=== PATIENT | male | born 1990 | race Caucasian/White ===

== ENCOUNTER 2021-07-08 10:00 | Outpatient (CLI) | payer OTHER ==
[~2021-07-08] VITALS: Ht 177.8 cm; Wt 108.0 kg
[~2021-07-08 10:00] MED LIST: ACETAMINOPHEN TAB 650MG DOSE (2X325MG) PO ONE; diphenhydrAMINE 25MG CAP PO ONE
[2021-07-08 10:10] VITALS: BP 164/93
[2021-07-08 10:14] VITALS: BP 168/93
[2021-07-08] MEDS ORDERED: MESA800T8 PO (10:34)
[2021-07-08] MEDS ORDERED: LISI10TA22 PO (10:34)
[2021-07-08] MEDS ORDERED: PROTPAK PO (10:34)
[2021-07-08] MEDS ORDERED: CLAR10CA3 PO (10:34)
[2021-07-08] MEDS: VEDOLIZUMAB 300 MG in NS 250 ML IV ONE ×2 (11:05→11:24)
[2021-07-08 11:38] VITALS: BP 157/91
== END 2021-07-08 11:40 | disposition home or self-care (01) ==
LOC: M INFU 10:00
PROVIDERS: ATTEND Internal Medicine Gastroenterology
DX: K50.90 Crohn's disease, unspecified, without complications (principal)
CPT/HCPCS: 96365; J3380

== ENCOUNTER 2021-07-22 11:25 | Outpatient (CLI) | payer OTHER ==
[~2021-07-22] VITALS: Ht 177.8 cm; Wt 108.0 kg
[~2021-07-22 11:25] MED LIST changes: -ACETAMINOPHEN TAB 650MG DOSE (2X325MG) PO ONE; +CLAR10CA3 PO; +LISI10TA22 PO; +MESA800T8 PO; +PROTPAK PO; -diphenhydrAMINE 25MG CAP PO ONE
[2021-07-22] MEDS ORDERED: VEDOLIZUMAB 300 MG in NS 250 ML IV ONE (11:30)
[2021-07-22] MEDS ORDERED: diphenhydrAMINE 25MG CAP PO ONE (11:30)
[2021-07-22] MEDS ORDERED: ACETAMINOPHEN TAB 650MG DOSE (2X325MG) PO ONE (11:30)
[2021-07-22 11:45] VITALS: BP 146/77
[2021-07-22 12:50] VITALS: BP 139/99
== END 2021-07-22 12:25 | disposition home or self-care (01) ==
LOC: M INFU 11:25 → EDUNIT# 11:30 → M INFU 12:25
PROVIDERS: ATTEND Internal Medicine Gastroenterology
DX: K50.90 Crohn's disease, unspecified, without complications (principal)
CPT/HCPCS: 96413; J3380

== ENCOUNTER 2021-08-19 11:27 | Outpatient (CLI) | payer OTHER ==
[2021-08-19] MEDS ORDERED: diphenhydrAMINE 25MG CAP PO ONE (11:30)
[2021-08-19] MEDS ORDERED: VEDOLIZUMAB 300 MG in NS 250 ML IV ONE (11:30)
[2021-08-19] MEDS ORDERED: ACETAMINOPHEN TAB 650MG DOSE (2X325MG) PO ONE (11:30)
[2021-08-19 12:26] VITALS: BP 173/92
[2021-08-19 13:25] VITALS: BP 163/88
== END 2021-08-19 13:25 | disposition home or self-care (01) ==
LOC: M INFU 11:27 → EDUNIT# 11:30 → M INFU 13:25
PROVIDERS: ATTEND Internal Medicine Gastroenterology
DX: K50.90 Crohn's disease, unspecified, without complications (principal)
CPT/HCPCS: 96365; J3380

== ENCOUNTER 2021-10-14 11:33 | Outpatient (CLI) | payer OTHER ==
[~2021-10-14] VITALS: Ht 175.3 cm; Wt 108.0 kg
[~2021-10-14 11:33] MED LIST changes: +ACETAMINOPHEN TAB 650MG DOSE (2X325MG) PO ONE; +VEDOLIZUMAB 300 MG in NS 250 ML IV ONE; +diphenhydrAMINE 25MG CAP PO ONE
[2021-10-14 11:48] VITALS: BP 170/88
[2021-10-14 12:57] VITALS: BP 166/88
== END 2021-10-14 13:00 | disposition home or self-care (01) ==
LOC: M INFU 11:33
PROVIDERS: ATTEND Internal Medicine Gastroenterology
DX: K50.90 Crohn's disease, unspecified, without complications (principal)
CPT/HCPCS: 96365; J3380

== ENCOUNTER 2021-12-09 11:23 | Outpatient (CLI) | payer OTHER ==
[~2021-12-09] VITALS: Ht 182.9 cm; Wt 111.3 kg
[~2021-12-09 11:23] MED LIST changes: -ACETAMINOPHEN TAB 650MG DOSE (2X325MG) PO ONE; -VEDOLIZUMAB 300 MG in NS 250 ML IV ONE; -diphenhydrAMINE 25MG CAP PO ONE
[2021-12-09 11:30] VITALS: BP 144/69
[2021-12-09] MEDS ORDERED: diphenhydrAMINE 25MG CAP PO ONE (11:30)
[2021-12-09] MEDS ORDERED: VEDOLIZUMAB 300 MG in NS 250 ML IV ONE (11:30)
[2021-12-09] MEDS ORDERED: ACETAMINOPHEN TAB 650MG DOSE (2X325MG) PO ONE (11:30)
[2021-12-09 13:25] VITALS: BP 142/89
== END 2021-12-09 13:25 | disposition home or self-care (01) ==
LOC: M INFU 11:23 → EDUNIT# 11:30 → M INFU 13:25
PROVIDERS: ATTEND Internal Medicine Gastroenterology
DX: K50.90 Crohn's disease, unspecified, without complications (principal)
CPT/HCPCS: 96365; J3380

== ENCOUNTER 2022-02-03 11:43 | Outpatient (CLI) | payer OTHER ==
[~2022-02-03] VITALS: Ht 182.9 cm; Wt 108.0 kg
[~2022-02-03 11:43] MED LIST changes: +ACETAMINOPHEN TAB 650MG DOSE (2X325MG) PO ONE; +VEDOLIZUMAB 300 MG in NS 250 ML IV ONE; +diphenhydrAMINE 25MG CAP PO ONE
[2022-02-03 11:45] VITALS: BP 158/68
[2022-02-03 13:05] VITALS: BP 164/89
== END 2022-02-03 13:05 | disposition home or self-care (01) ==
LOC: M INFU 11:43
PROVIDERS: ATTEND Internal Medicine Gastroenterology
DX: K50.90 Crohn's disease, unspecified, without complications (principal)
CPT/HCPCS: 96365; J3380

== ENCOUNTER 2022-03-31 11:30 | Outpatient (CLI) | payer OTHER ==
[2022-03-31 11:30] VITALS: BP 137/87
[2022-03-31 12:50] VITALS: BP 159/75
== END 2022-03-31 12:55 | disposition home or self-care (01) ==
LOC: M INFU 11:30
PROVIDERS: ATTEND Internal Medicine Gastroenterology
DX: K50.90 Crohn's disease, unspecified, without complications (principal)
CPT/HCPCS: 96365; J3380

== ENCOUNTER 2022-05-26 11:27 | Outpatient (CLI) | payer OTHER ==
[2022-05-26 11:25] VITALS: BP 141/95
[~2022-05-26 11:27] MED LIST changes: -ACETAMINOPHEN TAB 650MG DOSE (2X325MG) PO ONE; -VEDOLIZUMAB 300 MG in NS 250 ML IV ONE; -diphenhydrAMINE 25MG CAP PO ONE
[2022-05-26] MEDS ORDERED: diphenhydrAMINE 25MG CAP PO ONE (11:30)
[2022-05-26] MEDS ORDERED: ACETAMINOPHEN TAB 650MG DOSE (2X325MG) PO ONE (11:30)
[2022-05-26] MEDS ORDERED: VEDOLIZUMAB 300 MG in NS 250 ML IV ONE (11:30)
[2022-05-26 12:35] VITALS: BP 168/94
== END 2022-05-26 12:35 | disposition home or self-care (01) ==
LOC: M INFU 11:27
PROVIDERS: ATTEND Internal Medicine Gastroenterology
DX: K50.90 Crohn's disease, unspecified, without complications (principal)
CPT/HCPCS: 96365; J3380

== ENCOUNTER 2022-07-21 11:30 | Outpatient (CLI) | payer OTHER ==
[2022-07-21 11:30] VITALS: BP 144/81
[~2022-07-21 11:30] MED LIST changes: +ACETAMINOPHEN TAB 650MG DOSE (2X325MG) PO ONE; +VEDOLIZUMAB 300 MG in NS 250 ML IV ONE; +diphenhydrAMINE 25MG CAP PO ONE
[2022-07-21 12:39] VITALS: BP 142/79
== END 2022-07-21 12:40 | disposition home or self-care (01) ==
LOC: M INFU 11:30
PROVIDERS: ATTEND Internal Medicine Gastroenterology
DX: K50.90 Crohn's disease, unspecified, without complications (principal)
CPT/HCPCS: 96365; J3380

== ENCOUNTER 2022-09-15 11:35 | Outpatient (CLI) | payer OTHER ==
[~2022-09-15] VITALS: Ht 182.9 cm; Wt 108.0 kg
[2022-09-15 11:30] VITALS: BP 146/78
[2022-09-15 13:38] VITALS: BP 178/109
== END 2022-09-15 13:40 | disposition home or self-care (01) ==
LOC: M INFU 11:35
PROVIDERS: ATTEND Internal Medicine Gastroenterology
DX: K50.90 Crohn's disease, unspecified, without complications (principal)
CPT/HCPCS: 96365; J3380

== ENCOUNTER 2023-01-10 14:00 | Outpatient (CLI) | payer OTHER ==
[2023-01-10 14:16] VITALS: BP 179/97
[2023-01-10 15:14] VITALS: BP 166/93
== END 2023-01-10 15:10 | disposition home or self-care (01) ==
LOC: M INFU 14:00
PROVIDERS: ATTEND Internal Medicine Gastroenterology
DX: K50.90 Crohn's disease, unspecified, without complications (principal)
CPT/HCPCS: 96365; J3380

== ENCOUNTER 2023-03-08 11:25 | Outpatient (CLI) | payer OTHER ==
[~2023-03-08] VITALS: Ht 182.9 cm; Wt 108.0 kg
[~2023-03-08 11:25] MED LIST changes: -ACETAMINOPHEN TAB 650MG DOSE (2X325MG) PO ONE; -VEDOLIZUMAB 300 MG in NS 250 ML IV ONE; -diphenhydrAMINE 25MG CAP PO ONE
[2023-03-08 11:30] VITALS: BP 148/92
[2023-03-08] MEDS ORDERED: VEDOLIZUMAB 300 MG in NS 250 ML IV ONE (11:30)
[2023-03-08] MEDS ORDERED: ACETAMINOPHEN TAB 650MG DOSE (2X325MG) PO ONE (11:30)
[2023-03-08] MEDS ORDERED: diphenhydrAMINE 25MG CAP PO ONE (11:30)
[2023-03-08 12:45] VITALS: BP 144/86
== END 2023-03-08 12:45 | disposition home or self-care (01) ==
LOC: M INFU 11:25
PROVIDERS: ATTEND Internal Medicine Gastroenterology
DX: K50.90 Crohn's disease, unspecified, without complications (principal)
CPT/HCPCS: 96365; J3380

== ENCOUNTER 2023-06-07 10:35 | Outpatient (CLI) | payer OTHER ==
[2023-06-07 10:40] VITALS: BP 134/76; TEMP 97.9; O2SAT 99
[2023-06-07 10:45] VITALS: BP 141/81; O2SAT 98
[2023-06-07] MEDS ORDERED: VEDOLIZUMAB 300 MG in NS 250 ML IV ONE (11:00)
[2023-06-07] MEDS ORDERED: ACETAMINOPHEN TAB 650MG DOSE (2X325MG) PO ONE (11:00)
[2023-06-07] MEDS ORDERED: diphenhydrAMINE 25MG CAP PO ONE (11:00)
[2023-06-07 12:10] VITALS: BP 132/80; O2SAT 98
== END 2023-06-07 12:10 | disposition home or self-care (01) ==
LOC: M INFU 10:35
PROVIDERS: ATTEND Internal Medicine Gastroenterology
DX: K50.90 Crohn's disease, unspecified, without complications (principal)
CPT/HCPCS: 96365; J3380

== ENCOUNTER 2023-08-02 10:21 | Outpatient (CLI) | payer OTHER ==
[~2023-08-02] VITALS: Ht 182.9 cm; Wt 105.9 kg
[2023-08-02 10:27] VITALS: BP 140/73; O2SAT 96
[2023-08-02] MEDS ORDERED: ACETAMINOPHEN TAB 650MG DOSE (2X325MG) PO ONE (10:30)
[2023-08-02] MEDS ORDERED: VEDOLIZUMAB 300 MG in NS 250 ML IV ONE (10:30)
[2023-08-02] MEDS ORDERED: diphenhydrAMINE 25MG CAP PO ONE (10:30)
[2023-08-02 12:00] VITALS: BP 140/84; O2SAT 100
== END 2023-08-02 12:05 | disposition home or self-care (01) ==
LOC: M INFU 10:21
PROVIDERS: ATTEND Internal Medicine Gastroenterology
DX: K50.90 Crohn's disease, unspecified, without complications (principal)
CPT/HCPCS: 96365; J3380

== ENCOUNTER → 2023-08-05 | Outpatient (CLI) | payer OTHER | LOC: M SLEEP 20:00 | PROVIDERS: ATTEND Nurse Practitioner Family | DX: R06.83 Snoring (principal) ==

== ENCOUNTER 2023-09-27 10:00 | Outpatient (CLI) | payer OTHER ==
[~2023-09-27] VITALS: Ht 182.9 cm; Wt 108.0 kg
[2023-09-27 10:12] VITALS: BP 131/71; TEMP 98.3; O2SAT 98
[2023-09-27] MEDS ORDERED: ACETAMINOPHEN TAB 650MG DOSE (2X325MG) PO ONE (10:15)
[2023-09-27] MEDS ORDERED: diphenhydrAMINE 25MG CAP PO ONE (10:15)
[2023-09-27] MEDS ORDERED: VEDOLIZUMAB 300 MG in NS 250 ML IV ONE (10:15)
[2023-09-27 11:15] VITALS: BP 129/68; O2SAT 98
== END 2023-09-27 11:20 | disposition home or self-care (01) ==
LOC: M INFU 10:00
PROVIDERS: ATTEND Internal Medicine Gastroenterology
DX: K50.90 Crohn's disease, unspecified, without complications (principal)
CPT/HCPCS: 96365; J3380

== ENCOUNTER 2024-03-19 12:37 | Day surgery (SDC) | payer OTHER ==
[~2024-03-19] VITALS: Ht 182.9 cm; Wt 104.8 kg
[~2024-03-19 12:37] MED LIST changes: +ENTY1INJ SC; +METO1TAB7 PO; +NS 1,000 ML IV ONE; +RAMI10CA64 PO
[2024-03-19] MEDS ORDERED: LIDOCAINE 2% 100MG/5ML SDV (FOR ANES.) As Ordered ONE (12:42)
[2024-03-19] MEDS ORDERED: propofoL 200 MG/20 ML VIAL As Ordered ONE (12:44)
[2024-03-19 14:43] VITALS: BP 151/85; O2SAT 98
== END 2024-03-19 15:28 | disposition home or self-care (01) ==
LOC: M OPP 12:37
PROVIDERS: ATTEND Internal Medicine Gastroenterology
DX: K51.90 Ulcerative colitis, unspecified, without complications (principal); Z09 Encounter for follow-up examination after completed treatment for conditions other than malignant neoplasm; K63.89 Other specified diseases of intestine; K22.89 Other specified disease of esophagus; K44.9 Diaphragmatic hernia without obstruction or gangrene; K64.0 First degree hemorrhoids; K21.00 Gastro-esophageal reflux disease with esophagitis, without bleeding; R12 Heartburn; Z79.1 Long term (current) use of non-steroidal anti-inflammatories (NSAID); Z79.620 Long term (current) use of immunosuppressive biologic; Z79.899 Other long term (current) drug therapy; Z88.1 Allergy status to other antibiotic agents

== ENCOUNTER → 2024-11-01 | Outpatient (CLI) | payer OTHER ==
[~2024-11-01] MED LIST changes: -NS 1,000 ML IV ONE
== END ==
LOC: M WUC 13:10
PROVIDERS: ATTEND Internal Medicine Pulmonary Disease
DX: R91.8 Other nonspecific abnormal finding of lung field (principal)